=== PATIENT | female | born 1995 | race Caucasian/White ===

== ENCOUNTER 2016-05-30 20:01 | Emergency (ER) | payer OTHER ==
[~2016-05-30] VITALS: Ht 170.1 cm; Wt 59.0 kg
[~2016-05-30 20:01] MED LIST: ANAPROX DS550 MG PO; ATARAX,VISTARIL50 MG PO; BACTRIM DS 8001 TA1 PO; BACTROBAN OINT22 GM PO; CIPRO250 MG PO; FLEXERIL5 MG PO; HYDROCODONE BIT1 T11 PO; KEFLEX250 MG PO; MACROBID100 M1 PO; MOTRIN800 MG PO; Orphenadrine C100 MG PO; PERCOCET 325 MG1 TA2 PO; PREDNISONE20 M1 PO; PRENATABS FA1 TAB PO; PRENATAL1 TA7 PO; ZOFRAN ODT4 MG SL
[2016-05-30 21:26] LABS: BASO # 0.1 10*3/uL (0.0-0.1); BASO % 0.4 % (0.0-1.0); EOS # 0.1 10*3/uL (0.0-0.4); EOS % 0.6 % (1.0-4.0); HEMATOCRIT 40.8 % (37.0-47.0); HEMOGLOBIN 13.6 g/dl (12.0-16.0); LYMPH # 3.4 10*3/uL (1.3-4.4); LYMPH % 21.6 % (27.0-41.0); MEAN CELL VOLUME 90.9 fl (81.0-99.0); MEAN CORPUSCULAR HGB 30.3 pg (27.0-31.0); MEAN CORPUSCULAR HGB CONC 33.3 g/dl (33.0-37.0); MEAN PLATELET VOLUME 9.8 fl (9.6-12.3); MONO % 6.3 % (3.0-9.0); NEUT # 11.1 10*3/uL (2.3-7.9); NEUT % 70.8 % (47.0-73.0); PLATELET COUNT AUTOMATED 298 10*3/uL (130-400); RED BLOOD COUNT 4.49 10*6/uL (4.10-5.10); RED CELL DISTRI WIDTH 12.9 % (0-14.5); WHITE BLOOD COUNT 15.6 10*3/uL (4.8-10.8)
[2016-05-30 21:35] LABS: BILIRUBIN NEGATIVE (NEGATIVE); BLOOD NEGATIVE (NEGATIVE); CLARITY SL CLOUDY (CLEAR); COLOR YELLOW (YELLOW); GLUCOSE NEGATIVE (NEGATIVE); KETONE NEGATIVE (NEGATIVE); LEUKO ESTERASE TRACE (NEGATIVE); NITRITE NEGATIVE (NEGATIVE); PROTEIN NEGATIVE (NEGATIVE); UROBILINOGEN 0.2 E.U./dl (0.2-1.0)
[2016-05-30 21:35] LABS: URINE AMPHETAMINES < 1000 (1000ng/ml); URINE BARBITURATES < 200 (200ng/ml); URINE COCAINE < 300 (300ng/ml)
[2016-05-30 21:40] LABS: ALBUMIN 3.9 gm/dl (3.1-4.5); ALKALINE PHOSPHATASE 61 U/L (45-117); BILIRUBIN, TOTAL 0.2 mg/dl (0.2-1.0); BUN 12 mg/dl (7-24); CARBON DIOXIDE 24 mmol/L (21-32); CHLORIDE 111 mmol/L (98-107); EST GLOM FILT AFRICAN AMERICAN > 60 ml/min; GLUCOSE 81 mg/dL (65-99); POTASSIUM 3.8 mmol/L (3.5-5.1); SGOT/AST 19 IU/L (3-35); SGPT/ALT 28 U/L (12-78); SODIUM 142 mmol/L (136-145); TOTAL PROTEIN 7.8 gm/dL (6.4-8.2)
[2016-05-30 21:40] LABS: RBC 0-2 rbc/hpf (0-2)
[2016-05-30 21:41] LABS: BACTERIA 3+; URINE REFLEX COMMENT YES (NO)
== END 2016-05-31 00:38 | disposition home or self-care (01) ==
LOC: ED 20:01
PROVIDERS: Physician Assistant
DX: R10.33 Periumbilical pain (principal); R11.2 Nausea with vomiting, unspecified; F17.200 Nicotine dependence, unspecified, uncomplicated

== ENCOUNTER 2016-06-12 19:28 | Emergency (ER) | payer OTHER ==
[~2016-06-12] VITALS: Ht 170.1 cm; Wt 59.0 kg
[2016-06-12] MEDS ORDERED: PRENATAL1 TA1 PO (19:51)
== END 2016-06-12 19:53 | disposition home or self-care (01) ==
LOC: ED 19:28
DX: Z32.01 Encounter for pregnancy test, result positive (principal); O99.331 Smoking (tobacco) complicating pregnancy, first trimester; Z3A.01 Less than 8 weeks gestation of pregnancy

== ENCOUNTER 2016-06-17 22:09 | Emergency (ER) | payer OTHER ==
[~2016-06-17] VITALS: Ht 170.1 cm; Wt 61.2 kg
[~2016-06-17 22:09] MED LIST changes: +PRENATAL1 TA1 PO
[2016-06-17 22:36] LABS: BILIRUBIN NEGATIVE (NEGATIVE); BLOOD NEGATIVE (NEGATIVE); CLARITY SL CLOUDY (CLEAR); COLOR YELLOW (YELLOW); GLUCOSE NEGATIVE (NEGATIVE); KETONE NEGATIVE (NEGATIVE); LEUKO ESTERASE NEGATIVE (NEGATIVE); NITRITE NEGATIVE (NEGATIVE); PH 6.5 (5.0-9.0); PROTEIN NEGATIVE (NEGATIVE)
[2016-06-17 22:46] LABS: BACTERIA 2+
[2016-06-17 22:47] LABS: URINE REFLEX COMMENT YES (NO)
[2016-06-18] MEDS ORDERED: MACROBID100 M1 PO (01:26)
== END 2016-06-18 01:57 | disposition home or self-care (01) ==
LOC: ED 22:09
PROVIDERS: Emergency Medicine
DX: O23.41 Unspecified infection of urinary tract in pregnancy, first trimester (principal); O26.891 Other specified pregnancy related conditions, first trimester; G89.29 Other chronic pain; M54.5 Low back pain; O99.331 Smoking (tobacco) complicating pregnancy, first trimester; Z79.899 Other long term (current) drug therapy; Z3A.01 Less than 8 weeks gestation of pregnancy

== ENCOUNTER 2016-11-08 13:46 | Emergency (ER) | payer OTHER ==
[~2016-11-08] VITALS: Ht 170.1 cm; Wt 61.2 kg
[2016-11-08 14:22] LABS: BILIRUBIN NEGATIVE (NEGATIVE); BLOOD NEGATIVE (NEGATIVE); CLARITY SL CLOUDY (CLEAR); COLOR YELLOW (YELLOW); GLUCOSE NEGATIVE (NEGATIVE); KETONE NEGATIVE (NEGATIVE); LEUKO ESTERASE NEGATIVE (NEGATIVE); NITRITE NEGATIVE (NEGATIVE); UROBILINOGEN 0.2 E.U./dl (0.2-1.0)
[2016-11-08 14:30] LABS: BACTERIA 2+; RBC 0-2 rbc/hpf (0-2)
[2016-11-08 14:31] LABS: BASO % 0.2 % (0.0-1.0); EOS # 0.1 10*3/uL (0.0-0.4); EOS % 0.9 % (1.0-4.0); HEMATOCRIT 33.6 % (37.0-47.0); HEMOGLOBIN 11.5 g/dl (12.0-16.0); LYMPH # 1.8 10*3/uL (1.3-4.4); LYMPH % 15.6 % (27.0-41.0); MEAN CELL VOLUME 92.1 fl (81.0-99.0); MEAN CORPUSCULAR HGB 31.5 pg (27.0-31.0); MEAN CORPUSCULAR HGB CONC 34.2 g/dl (33.0-37.0); MONO # 0.6 10*3/uL (0.1-1.0); PLATELET COUNT AUTOMATED 185 10*3/uL (130-400); RED BLOOD COUNT 3.65 10*6/uL (4.10-5.10); RED CELL DISTRI WIDTH 13.3 % (0-14.5); WHITE BLOOD COUNT 11.5 10*3/uL (4.8-10.8)
[2016-11-08 14:47] LABS: ALBUMIN 2.6 gm/dl (3.1-4.5); ALKALINE PHOSPHATASE 51 U/L (45-117); BUN 4 mg/dl (7-24); CHLORIDE 107 mmol/L (98-107); CREATININE 0.68 mg/dL (0.55-1.02); POTASSIUM 4.1 mmol/L (3.5-5.1); SGOT/AST 5 IU/L (3-35); SGPT/ALT 10 U/L (12-78); SODIUM 136 mmol/L (136-145); TOTAL PROTEIN 6.3 gm/dL (6.4-8.2)
== END 2016-11-08 16:50 | disposition home or self-care (01) ==
LOC: ED 13:46
PROVIDERS: Nurse Practitioner Family
DX: O23.41 Unspecified infection of urinary tract in pregnancy, first trimester (principal); O99.331 Smoking (tobacco) complicating pregnancy, first trimester; O26.891 Other specified pregnancy related conditions, first trimester; M54.5 Low back pain; Z3A.13 13 weeks gestation of pregnancy; Z79.899 Other long term (current) drug therapy; Z88.5 Allergy status to narcotic agent

== ENCOUNTER → 2016-12-15 | Outpatient (CLI) | payer OTHER ==
[2016-12-15 15:38] LABS: BASO % 0.2 % (0.0-1.0); EOS # 0.1 10*3/uL (0.0-0.4); EOS % 0.8 % (1.0-4.0); HEMATOCRIT 34.9 % (37.0-47.0); HEMOGLOBIN 11.9 g/dl (12.0-16.0); LYMPH # 2.5 10*3/uL (1.3-4.4); LYMPH % 19.6 % (27.0-41.0); MEAN CELL VOLUME 91.6 fl (81.0-99.0); MEAN CORPUSCULAR HGB 31.2 pg (27.0-31.0); MEAN CORPUSCULAR HGB CONC 34.1 g/dl (33.0-37.0); MEAN PLATELET VOLUME 9.1 fl (9.6-12.3); MONO # 0.6 10*3/uL (0.1-1.0); MONO % 4.6 % (3.0-9.0); NEUT # 9.4 10*3/uL (2.3-7.9); NEUT % 74.5 % (47.0-73.0); PLATELET COUNT AUTOMATED 262 10*3/uL (130-400); RED BLOOD COUNT 3.81 10*6/uL (4.10-5.10); RED CELL DISTRI WIDTH 13.5 % (0-14.5); WHITE BLOOD COUNT 12.6 10*3/uL (4.8-10.8)
[2016-12-15 15:44] LABS: URINE AMPHETAMINES < 1000 (1000ng/ml); URINE BARBITURATES < 200 (200ng/ml); URINE BENZODIAZEPINES < 200 (200ng/ml); URINE CANNABINOIDS (THC) > 50 (50ng/ml); URINE COCAINE < 300 (300ng/ml); URINE METHADONE < 300 (300ng/ml); URINE OPIATES < 300 (300ng/ml)
[2016-12-15 15:46] LABS: URINE PHENCYCLIDINE < 25 (25ng/ml)
[2016-12-16 07:04] LABS: HEPATITIS B SURFACE AG Negative (Negative); HIV 1+2 AB + HIV1 P24 AG Non Reactive (Non Reactive)
[2016-12-16 14:05] LABS: VARICELLA-ZOSTER IGG 096206 735 index (Immune >165)
== END | disposition home or self-care (01) ==
LOC: LAB 14:55
PROVIDERS: Obstetrics & Gynecology
DX: Z34.82 Encounter for supervision of other normal pregnancy, second trimester (principal); Z3A.19 19 weeks gestation of pregnancy

== ENCOUNTER 2016-12-27 16:40 | Emergency (ER) | payer OTHER ==
[~2016-12-27] VITALS: Ht 170.1 cm; Wt 63.5 kg
[2016-12-27 17:39] LABS: BILIRUBIN NEGATIVE (NEGATIVE); BLOOD NEGATIVE (NEGATIVE); CLARITY CLEAR (CLEAR); COLOR YELLOW (YELLOW); GLUCOSE NEGATIVE (NEGATIVE); KETONE NEGATIVE (NEGATIVE); LEUKO ESTERASE NEGATIVE (NEGATIVE); NITRITE NEGATIVE (NEGATIVE); PH 7.5 (5.0-9.0); SPECIFIC GRAVITY 1.015 (1.005-1.030); UROBILINOGEN 0.2 E.U./dl (0.2-1.0)
[2016-12-27 17:46] LABS: WBC 0-2 wbc/hpf (0-5)
[2016-12-27 17:47] LABS: BACTERIA TRACE
== END 2016-12-27 18:06 | disposition home or self-care (01) ==
LOC: ED 16:40
PROVIDERS: Nurse Practitioner Family
DX: O21.9 Vomiting of pregnancy, unspecified (principal); O99.332 Smoking (tobacco) complicating pregnancy, second trimester; F17.200 Nicotine dependence, unspecified, uncomplicated; O26.892 Other specified pregnancy related conditions, second trimester; G89.29 Other chronic pain; M54.5 Low back pain; Z3A.20 20 weeks gestation of pregnancy; Z79.899 Other long term (current) drug therapy; Z88.5 Allergy status to narcotic agent

== ENCOUNTER → 2017-03-02 | Outpatient (CLI) | payer OTHER ==
[~2017-03-02] MED LIST changes: +MAPAP325 MG PO
[2017-03-02 09:16] LABS: HEMATOCRIT 29.5 % (37.0-47.0); HEMOGLOBIN 9.9 g/dl (12.0-16.0); MEAN CELL VOLUME 93.7 fl (81.0-99.0); MEAN CORPUSCULAR HGB 31.4 pg (27.0-31.0); MEAN CORPUSCULAR HGB CONC 33.6 g/dl (33.0-37.0); MEAN PLATELET VOLUME 9.3 fl (9.6-12.3); RED BLOOD COUNT 3.15 10*6/uL (4.10-5.10); WHITE BLOOD COUNT 11.7 10*3/uL (4.8-10.8)
== END | disposition home or self-care (01) ==
LOC: LAB 08:51
PROVIDERS: Obstetrics & Gynecology
DX: Z34.83 Encounter for supervision of other normal pregnancy, third trimester (principal); O36.0130 Maternal care for anti-D [Rh] antibodies, third trimester, not applicable or unspecified; Z3A.28 28 weeks gestation of pregnancy

== ENCOUNTER 2017-03-04 10:22 | Emergency (ER) | payer OTHER ==
[~2017-03-04] VITALS: Wt 71.2 kg
[~2017-03-04 10:22] MED LIST changes: -MAPAP325 MG PO
[2017-03-04 11:07] LABS: BILIRUBIN NEGATIVE (NEGATIVE); BLOOD NEGATIVE (NEGATIVE); CLARITY SL CLOUDY (CLEAR); COLOR YELLOW (YELLOW); GLUCOSE NEGATIVE (NEGATIVE); KETONE NEGATIVE (NEGATIVE); LEUKO ESTERASE NEGATIVE (NEGATIVE); NITRITE NEGATIVE (NEGATIVE); UROBILINOGEN 0.2 E.U./dl (0.2-1.0)
[2017-03-04 11:15] LABS: BACTERIA TRACE; EPITHELIAL CELLS TNTC
[2017-03-04] MEDS ORDERED: MAPAP325 MG PO (11:19)
== END 2017-03-04 11:20 | disposition home or self-care (01) ==
LOC: ED 10:22
PROVIDERS: Student in an Organized Health Care Education/Training Program
DX: O26.893 Other specified pregnancy related conditions, third trimester (principal); M54.5 Low back pain; G89.29 Other chronic pain; O99.333 Smoking (tobacco) complicating pregnancy, third trimester; F17.200 Nicotine dependence, unspecified, uncomplicated; Z3A.30 30 weeks gestation of pregnancy; Z88.5 Allergy status to narcotic agent; Z79.899 Other long term (current) drug therapy

== ENCOUNTER 2017-10-07 15:17 | Emergency (ER) | payer OTHER ==
[~2017-10-07] VITALS: Ht 172.7 cm; Wt 65.8 kg
[~2017-10-07 15:17] MED LIST changes: +MAPAP325 MG PO
[2017-10-07 15:50] LABS: BASO % 0.5 % (0.0-1.0); EOS # 0.1 10*3/uL (0.0-0.4); HEMATOCRIT 38.8 % (37.0-47.0); HEMOGLOBIN 13.1 g/dl (12.0-16.0); LYMPH # 1.8 10*3/uL (1.3-4.4); LYMPH % 23.3 % (27.0-41.0); MEAN CELL VOLUME 90.4 fl (81.0-99.0); MEAN CORPUSCULAR HGB 30.5 pg (27.0-31.0); MEAN CORPUSCULAR HGB CONC 33.8 g/dl (33.0-37.0); MEAN PLATELET VOLUME 9.1 fl (9.6-12.3); MONO # 0.7 10*3/uL (0.1-1.0); MONO % 8.7 % (3.0-9.0); NEUT # 5.1 10*3/uL (2.3-7.9); NEUT % 66.2 % (47.0-73.0); PLATELET COUNT AUTOMATED 226 10*3/uL (130-400); RED BLOOD COUNT 4.29 10*6/uL (4.10-5.10); WHITE BLOOD COUNT 7.6 10*3/uL (4.8-10.8)
[2017-10-07 16:04] LABS: BILIRUBIN NEGATIVE (NEGATIVE); BLOOD NEGATIVE (NEGATIVE); CLARITY CLEAR (CLEAR); COLOR YELLOW (YELLOW); GLUCOSE NEGATIVE (NEGATIVE); KETONE NEGATIVE (NEGATIVE); LEUKO ESTERASE TRACE (NEGATIVE); NITRITE NEGATIVE (NEGATIVE); SPECIFIC GRAVITY <= 1.005 (1.005-1.030); UROBILINOGEN 0.2 E.U./dl (0.2-1.0)
[2017-10-07 16:05] LABS: ALBUMIN 3.8 gm/dl (3.1-4.5); ALKALINE PHOSPHATASE 64 U/L (45-117); BUN 10 mg/dl (7-24); CHLORIDE 109 mmol/L (98-107); CREATININE 0.96 mg/dL (0.55-1.02); LIPASE 61 U/L (73-393); POTASSIUM 3.5 mmol/L (3.5-5.1); SGOT/AST 15 IU/L (3-35); SGPT/ALT 20 U/L (12-78); SODIUM 139 mmol/L (136-145); TOTAL PROTEIN 7.4 gm/dL (6.4-8.2)
[2017-10-07] MEDS ORDERED: CLARITIN10 MG PO (16:07)
[2017-10-07] MEDS ORDERED: ZOFRAN4 MG PO (16:07)
[2017-10-07] MEDS ORDERED: PREDNISONE10 MG PO (16:07)
[2017-10-07] MEDS ORDERED: FLONASE ALLERG9.9 ML NAS (16:07)
[2017-10-07 16:11] LABS: BACTERIA 2+; MUCOUS TRACE
== END 2017-10-07 16:44 | disposition home or self-care (01) ==
LOC: ED 15:17
PROVIDERS: Nurse Practitioner Family
DX: B34.9 Viral infection, unspecified (principal); R03.0 Elevated blood-pressure reading, without diagnosis of hypertension; G89.29 Other chronic pain; F17.200 Nicotine dependence, unspecified, uncomplicated; Z79.899 Other long term (current) drug therapy; Z88.5 Allergy status to narcotic agent

== ENCOUNTER 2017-10-08 14:15 | Inpatient (IN) | payer OTHER ==
[~2017-10-08] VITALS: Ht 172.7 cm; Wt 63.2 kg
--- NOTE | ~2017-10-08 | CON ---
[place], [place] REPORT OF CONSULTATION NAME: CEM ARANGO UNIT #: [id number] ROOM: 415 DOCTOR: YUSUF MACIAS,MAY BIRTHDATE: [birth year] DOS: 10/09/2017 HISTORY OF PRESENT ILLNESS: The patient is a 22-year-old female who came in from home on 10/07 due to a persistent cough for several days. She was diagnosed with bronchitis and discharged home with steroids. Her blood cultures, she had 2 bottles from one set with gram-positive cocci. She was called back to the hospital yesterday. She was placed on vancomycin and Zosyn. She had no complaints of urinary symptoms. Does have some vaginal discharge, which she states is white yellow that she is about to start her period and has no irritation or pain with the discharge. She has also had a hematemesis for 2 days on the and 10/08. She states that has resolved. Denies any other pain anywhere. No rashes. Cough is nonproductive. No fevers or chills. No peripheral edema. No history of valve disease or rheumatic fever. Her urinalysis was a clean urine culture from the , remained sterile. Repeat blood cultures from yesterday remained sterile. She had a CT of the abdomen and pelvis, which only demonstrates a nonobstructing calculus in the right kidney. Chest x-ray showed no infiltrate. PAST MEDICAL HISTORY: Only significant for dilation and curettage, , back pain, tobacco abuse, marijuana abuse. FAMILY MEDICAL HISTORY: Father from a swimming accident in 1995. Mother of a heroin overdose. ALLERGIES: INCLUDE HYDROMORPHONE. CURRENT MEDICATIONS: Zofran, Ativan, Lovenox, vitamin D, Motrin, vancomycin, Zosyn, Nicoderm, Nicotrol, Solu-Medrol, DuoNebs, Tylenol. SOCIAL HISTORY: Smokes 2 packs of cigarettes per day. Also, drinks heavily up to 8-10 beers per day, smokes marijuana, smoked crack up until 2 years ago. Denies any history of IV drug use. LABORATORY DATA: WBCs 8.7, platelets 192, BUN 15, creatinine 0.92, sodium 141. LFTs within normal limits. C-reactive protein yesterday was 1.7, lactic acid was 0.7. Again, repeat blood cultures from 10/08 remained sterile. Her urine culture from 10/07 is sterile. Blood cultures from 10/07, two bottles of one set with gram-positive cocci in clusters. VITAL SIGNS: Temperature 97.5, pulse 62, respirations 16, BP 118/58. REVIEW OF SYSTEMS: As above in history of present illness. Again, no fevers or chills prior to admission or since admission. Further review of systems is unremarkable x 10. PHYSICAL EXAMINATION: GENERAL: A 22-year-old female in no acute distress. HEENT: Normocephalic, no thrush. No cervical lymphadenopathy. Neck supple. Teeth in good repair. LUNGS: With rhonchi bilaterally. Respirations even and unlabored. [place], [place] REPORT OF CONSULTATION NAME: CEM ARANGO UNIT #: [id number] ROOM: [facility] DOCTOR: YUSUF MACIASMAY BIRTHDATE: [birth year] HEART: Regular rhythm. No murmur appreciated. ABDOMEN: Soft, nontender, positive bowel sounds, no masses. EXTREMITIES: No edema, deformity or cyanosis. SKIN: Warm, dry, free of rashes. Multiple tattoos. ASSESSMENT: Gram-positive cocci bacteremia, contaminant versus true infection, contaminant seems more likely. However, she did have 2 bottles from one set. PLAN: We will follow up on the cultures, stop Zosyn, continue vancomycin for now, pending the results of her blood cultures. I have discussed with her the need for tobacco and alcohol abuse cessation, especially for her long-term health. MAY GILBERTO GOLDBERG Syeda Ha MD CM:CONSTR:REPORT OF CONSULTATION 1500 10/09/17 [id number] interface
--- NOTE | ~2017-10-08 | EKG ---
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
--- NOTE | ~2017-10-08 | CON ---
[place], [place] REPORT OF CONSULTATION NAME: CEM ARANGO UNIT #: [id number] ROOM: 415 DOCTOR: PETE REZA MD BIRTHDATE: [birth year] DOS: 10/09/2017 Gram-positive bacteremia, likely a contaminant. Watch for next 24 hours. Other blood cultures to remain negative. I agree with the assessment and plan made by the nurse practitioner, Hali Hatfield. I reviewed the labs and imaging, made necessary changes. Syeda Reza MD CM:CONSTR:REPORT OF CONSULTATION 1621 10/10/17 2106 interface
[~2017-10-08 14:15] MED LIST changes: +CLARITIN10 MG PO; +FLONASE ALLERG9.9 ML NAS; +PREDNISONE10 MG PO; +ZOFRAN4 MG PO
[2017-10-08 14:16] VITALS: BP 132/79
[2017-10-08 14:48] LABS: BASO % 0.3 % (0.0-1.0); EOS # 0.1 10*3/uL (0.0-0.4); EOS % 0.6 % (1.0-4.0); HEMATOCRIT 37.9 % (37.0-47.0); HEMOGLOBIN 12.7 g/dl (12.0-16.0); LYMPH # 3.1 10*3/uL (1.3-4.4); LYMPH % 26.1 % (27.0-41.0); MEAN CELL VOLUME 90.5 fl (81.0-99.0); MEAN CORPUSCULAR HGB 30.3 pg (27.0-31.0); MEAN CORPUSCULAR HGB CONC 33.5 g/dl (33.0-37.0); MEAN PLATELET VOLUME 9.4 fl (9.6-12.3); MONO # 1.1 10*3/uL (0.1-1.0); MONO % 9.1 % (3.0-9.0); NEUT # 7.5 10*3/uL (2.3-7.9); NEUT % 63.7 % (47.0-73.0); PLATELET COUNT AUTOMATED 245 10*3/uL (130-400); RED BLOOD COUNT 4.19 10*6/uL (4.10-5.10); RED CELL DISTRI WIDTH 13.1 % (0-14.5); WHITE BLOOD COUNT 11.8 10*3/uL (4.8-10.8)
[2017-10-08 15:05] LABS: ALBUMIN 3.8 gm/dl (3.1-4.5); ALKALINE PHOSPHATASE 64 U/L (45-117); BUN 19 mg/dl (7-24); CHLORIDE 109 mmol/L (98-107); CREATININE 1.08 mg/dL (0.55-1.02); POTASSIUM 3.5 mmol/L (3.5-5.1); SGOT/AST 37 IU/L (3-35); SGPT/ALT 29 U/L (12-78); SODIUM 141 mmol/L (136-145); TOTAL PROTEIN 7.4 gm/dL (6.4-8.2)
[2017-10-08 15:45] VITALS: BP 117/80
[2017-10-08 16:28] LABS: LIPASE 95 U/L (73-393)
[2017-10-08 17:36] LABS: BILIRUBIN NEGATIVE (NEGATIVE); BLOOD NEGATIVE (NEGATIVE); CLARITY SL CLOUDY (CLEAR); COLOR YELLOW (YELLOW); GLUCOSE NEGATIVE (NEGATIVE); KETONE TRACE (NEGATIVE); LEUKO ESTERASE NEGATIVE (NEGATIVE); NITRITE NEGATIVE (NEGATIVE); SPECIFIC GRAVITY 1.025 (1.005-1.030)
[2017-10-08 17:50] LABS: CALCIUM OXALATE CRYSTALS 1+; MUCOUS 1+
[2017-10-08 20:00] VITALS: BP 116/74
[2017-10-09] VITALS: BP 117/63
[2017-10-09 06:01] LABS: BASO % 0.2 % (0.0-1.0); HEMATOCRIT 34.1 % (37.0-47.0); HEMOGLOBIN 11.3 g/dl (12.0-16.0); LYMPH # 2.1 10*3/uL (1.3-4.4); MEAN CELL VOLUME 92.7 fl (81.0-99.0); MEAN CORPUSCULAR HGB 30.7 pg (27.0-31.0); MEAN CORPUSCULAR HGB CONC 33.1 g/dl (33.0-37.0); MEAN PLATELET VOLUME 9.7 fl (9.6-12.3); MONO # 0.6 10*3/uL (0.1-1.0); MONO % 6.4 % (3.0-9.0); NEUT % 69.1 % (47.0-73.0); PLATELET COUNT AUTOMATED 192 10*3/uL (130-400); RED BLOOD COUNT 3.68 10*6/uL (4.10-5.10); RED CELL DISTRI WIDTH 13.2 % (0-14.5); WHITE BLOOD COUNT 8.7 10*3/uL (4.8-10.8)
[2017-10-09 06:30] LABS: ALKALINE PHOSPHATASE 51 U/L (45-117); BUN 15 mg/dl (7-24); CHLORIDE 110 mmol/L (98-107); CREATININE 0.92 mg/dL (0.55-1.02); FREE T4 0.98 ng/dl (0.76-1.46); PHOSPHOROUS 3.1 mg/dL (2.5-4.9); POTASSIUM 3.9 mmol/L (3.5-5.1); SGOT/AST 21 IU/L (3-35); SGPT/ALT 24 U/L (12-78); SODIUM 141 mmol/L (136-145); TOTAL PROTEIN 6.2 gm/dL (6.4-8.2)
[2017-10-09 06:35] LABS: THYROID STIM HORMONE (HS) 0.664 uIU/ml (0.358-4.75)
[2017-10-09 08:00] VITALS: BP 124/84
[2017-10-09 08:20] LABS: VITAMIN D, 25-HYDROXY 29.7 ng/mL (30-100)
[2017-10-09 12:00] VITALS: BP 118/58
[2017-10-09 16:00] VITALS: BP 126/77
[2017-10-09 17:39] LABS: URINE AMPHETAMINES < 1000 (1000ng/ml); URINE BARBITURATES < 200 (200ng/ml); URINE BENZODIAZEPINES < 200 (200ng/ml); URINE CANNABINOIDS (THC) > 50 (50ng/ml); URINE COCAINE > 300 (300ng/ml); URINE METHADONE < 300 (300ng/ml); URINE OPIATES > 300 (300ng/ml)
[2017-10-09 17:40] LABS: URINE PHENCYCLIDINE < 25 (25ng/ml)
[2017-10-09 20:00] VITALS: BP 117/79
[2017-10-10] VITALS: BP 111/52
[2017-10-10 08:00] VITALS: BP 126/79
[2017-10-10 12:00] VITALS: BP 135/84
[2017-10-10] MEDS ORDERED: VITAMIN D-32000 UNIT PO (15:18)
[2017-10-10] MEDS ORDERED: NICODERM CQ1 EAC2 T (15:56)
[2017-10-10 16:00] VITALS: BP 115/67
[2017-10-13 04:03] LABS: GONOCOCCUS BY NAA Negative (Negative)
== END 2017-10-10 16:34 | disposition home or self-care (01) | DRG 693 ==
LOC: ED 14:15 → EDHOLD 15:22 → 4E 15:58
PROVIDERS: Emergency Medicine; Registered Nurse
DX: N20.0 Calculus of kidney (principal); N17.0 Acute kidney failure with tubular necrosis; K92.0 Hematemesis; E44.0 Moderate protein-calorie malnutrition; R45.851 Suicidal ideations; G89.29 Other chronic pain; F17.210 Nicotine dependence, cigarettes, uncomplicated; D72.829 Elevated white blood cell count, unspecified; M54.5 Low back pain; F10.10 Alcohol abuse, uncomplicated; E55.9 Vitamin D deficiency, unspecified; R73.9 Hyperglycemia, unspecified; Z88.6 Allergy status to analgesic agent; Z87.440 Personal history of urinary (tract) infections; Z87.442 Personal history of urinary calculi; Z81.3 Family history of other psychoactive substance abuse and dependence; Z79.899 Other long term (current) drug therapy; Z79.52 Long term (current) use of systemic steroids; Z71.6 Tobacco abuse counseling; Z71.41 Alcohol abuse counseling and surveillance of alcoholic; Z68.21 Body mass index [BMI] 21.0-21.9, adult

== ENCOUNTER 2018-08-29 17:39 | Emergency (ER) | payer OTHER ==
[~2018-08-29] VITALS: Ht 170.1 cm; Wt 61.2 kg
[~2018-08-29 17:39] MED LIST changes: +NICODERM CQ1 EAC2 T; +VITAMIN D-32000 UNIT PO
[2018-08-29 18:15] LABS: BILIRUBIN NEGATIVE (NEGATIVE); BLOOD NEGATIVE (NEGATIVE); CLARITY CLEAR (CLEAR); COLOR YELLOW (YELLOW); GLUCOSE NEGATIVE (NEGATIVE); KETONE NEGATIVE (NEGATIVE); LEUKO ESTERASE TRACE (NEGATIVE); NITRITE NEGATIVE (NEGATIVE); UROBILINOGEN 0.2 E.U./dl (0.2-1.0)
[2018-08-29 18:24] LABS: BACTERIA 1+; MUCOUS TRACE; WBC 0-2 wbc/hpf (0-5)
== END 2018-08-29 20:55 | disposition left against medical advice (07) ==
LOC: ED 17:39
PROVIDERS: Physician Assistant
DX: O26.891 Other specified pregnancy related conditions, first trimester (principal); R10.30 Lower abdominal pain, unspecified; M54.9 Dorsalgia, unspecified; N89.8 Other specified noninflammatory disorders of vagina; F17.200 Nicotine dependence, unspecified, uncomplicated; F12.90 Cannabis use, unspecified, uncomplicated; Z88.6 Allergy status to analgesic agent; Z3A.09 9 weeks gestation of pregnancy

== ENCOUNTER 2018-11-16 19:13 | Emergency (ER) | payer OTHER ==
[~2018-11-16] VITALS: Wt 70.3 kg
[2018-11-16] MEDS ORDERED: ZITHROMAX250 MG PO (19:32)
== END 2018-11-16 19:50 | disposition home or self-care (01) ==
LOC: ED 19:13
DX: J32.9 Chronic sinusitis, unspecified (principal); G89.29 Other chronic pain; F17.200 Nicotine dependence, unspecified, uncomplicated; Z88.8 Allergy status to other drugs, medicaments and biological substances

== ENCOUNTER 2018-11-25 21:47 | Emergency (ER) | payer OTHER ==
[~2018-11-25] VITALS: Ht 170.1 cm; Wt 63.5 kg
[~2018-11-25 21:47] MED LIST changes: +ZITHROMAX250 MG PO
[2018-11-25 22:16] LABS: BILIRUBIN NEGATIVE (NEGATIVE); BLOOD TRACE-INTACT (NEGATIVE); CLARITY SL CLOUDY (CLEAR); COLOR YELLOW (YELLOW); GLUCOSE NEGATIVE (NEGATIVE); KETONE NEGATIVE (NEGATIVE); LEUKO ESTERASE NEGATIVE (NEGATIVE); NITRITE NEGATIVE (NEGATIVE); SPECIFIC GRAVITY >= 1.030 (1.005-1.030); UROBILINOGEN 0.2 E.U./dl (0.2-1.0)
[2018-11-25 22:35] LABS: EPITHELIAL CELLS 45-50
[2018-11-25 22:40] LABS: BACTERIA 1+; WBC 0-2 wbc/hpf (0-5)
[2018-11-25 23:50] LABS: BASO # 0.1 10*3/uL (0.0-0.1); BASO % 0.4 % (0.0-1.0); EOS # 0.3 10*3/uL (0.0-0.4); EOS % 2.3 % (1.0-4.0); HEMATOCRIT 31.7 % (37.0-47.0); HEMOGLOBIN 10.4 g/dl (12.0-16.0); LYMPH # 3.1 10*3/uL (1.3-4.4); LYMPH % 25.2 % (27.0-41.0); MEAN CELL VOLUME 96.9 fl (81.0-99.0); MEAN CORPUSCULAR HGB 31.8 pg (27.0-31.0); MEAN CORPUSCULAR HGB CONC 32.8 g/dl (33.0-37.0); MEAN PLATELET VOLUME 9.1 fl (9.6-12.3); MONO # 0.8 10*3/uL (0.1-1.0); MONO % 6.1 % (3.0-9.0); NEUT # 8.1 10*3/uL (2.3-7.9); NEUT % 65.5 % (47.0-73.0); PLATELET COUNT AUTOMATED 267 10*3/uL (130-400); RED BLOOD COUNT 3.27 10*6/uL (4.10-5.10); RED CELL DISTRI WIDTH 13.2 % (0-14.5); WHITE BLOOD COUNT 12.4 10*3/uL (4.8-10.8)
[2018-11-26 00:01] LABS: BUN 14 mg/dl (7-24); CHLORIDE 108 mmol/L (98-107); CREATININE 0.68 mg/dL (0.55-1.02); POTASSIUM 3.8 mmol/L (3.5-5.1); SODIUM 138 mmol/L (136-145)
[2018-11-26] MEDS ORDERED: MACROBID100 M1 PO (01:08)
== END 2018-11-26 01:39 | disposition home or self-care (01) ==
LOC: ED 21:47
PROVIDERS: Emergency Medicine Emergency Medical Services
DX: O23.42 Unspecified infection of urinary tract in pregnancy, second trimester (principal); B96.89 Other specified bacterial agents as the cause of diseases classified elsewhere; G89.29 Other chronic pain; O99.332 Smoking (tobacco) complicating pregnancy, second trimester; Z3A.19 19 weeks gestation of pregnancy; Z88.6 Allergy status to analgesic agent; Z79.2 Long term (current) use of antibiotics

== ENCOUNTER → 2018-11-28 | Outpatient (CLI) | payer OTHER | END | disposition home or self-care (01) | LOC: US 00:59 | DX: Z34.02 Encounter for supervision of normal first pregnancy, second trimester (principal); Z3A.21 21 weeks gestation of pregnancy ==

== ENCOUNTER 2019-04-13 11:22 | Emergency (ER) | payer OTHER | END 2019-04-13 12:00 | disposition short-term general hospital (02) | LOC: ED 11:22 | DX: O62.9 Abnormality of forces of labor, unspecified (principal); O99.333 Smoking (tobacco) complicating pregnancy, third trimester; Z3A.39 39 weeks gestation of pregnancy; Z79.899 Other long term (current) drug therapy; Z79.2 Long term (current) use of antibiotics ==

== ENCOUNTER 2019-07-18 16:26 | Emergency (ER) | payer OTHER ==
[~2019-07-18] VITALS: Ht 170.1 cm; Wt 70.3 kg
[2019-07-18 17:15] LABS: BILIRUBIN NEGATIVE (NEGATIVE); BLOOD 1+ (NEGATIVE); CLARITY CLEAR (CLEAR); COLOR YELLOW (YELLOW); GLUCOSE NEGATIVE (NEGATIVE); KETONE NEGATIVE (NEGATIVE); NITRITE NEGATIVE (NEGATIVE); SPECIFIC GRAVITY 1.015 (1.005-1.030); UROBILINOGEN 0.2 E.U./dl (0.2-1.0)
[2019-07-18 17:17] LABS: LEUKO ESTERASE NEGATIVE (NEGATIVE)
[2019-07-18 17:20] LABS: BACTERIA 1+; RBC 21-30 rbc/hpf (0-2)
[2019-07-18 17:21] LABS: MUCOUS 1+
[2019-07-18] MEDS ORDERED: FLOMAX0.4 MG PO (19:32)
[2019-07-18] MEDS ORDERED: ZOFRAN4 MG PO (19:32)
[2019-07-18] MEDS ORDERED: Motrin,Rufen800 MG PO (19:32)
[2019-07-18] MEDS ORDERED: AMINOPHYLLIN200 MG PO (19:32)
== END 2019-07-18 19:59 | disposition home or self-care (01) ==
LOC: ED 16:26
PROVIDERS: Physician Assistant
DX: N20.1 Calculus of ureter (principal); Z88.8 Allergy status to other drugs, medicaments and biological substances

== ENCOUNTER → 2019-12-26 | Outpatient (CLI) | payer OTHER ==
[~2019-12-26] MED LIST changes: +AMINOPHYLLIN200 MG PO; +FLOMAX0.4 MG PO; +Motrin,Rufen800 MG PO
== END | disposition home or self-care (01) ==
LOC: US 13:57
PROVIDERS: ATTEND Nurse Practitioner Women's Health
DX: O34.81 Maternal care for other abnormalities of pelvic organs, first trimester (principal); Z3A.11 11 weeks gestation of pregnancy

== ENCOUNTER → 2020-01-23 | Outpatient (CLI) | payer OTHER | END | disposition home or self-care (01) | LOC: COVID19 13:08 | PROVIDERS: ATTEND Internal Medicine | DX: Z20.828 Contact with and (suspected) exposure to other viral communicable diseases (principal) ==

== ENCOUNTER 2020-02-29 09:55 | Emergency (ER) | payer OTHER ==
[~2020-02-29] VITALS: Ht 170.1 cm; Wt 72.6 kg
== END 2020-02-29 10:31 | disposition home or self-care (01) ==
LOC: ED 09:55
DX: O46.92 Antepartum hemorrhage, unspecified, second trimester (principal); Z3A.20 20 weeks gestation of pregnancy; Z88.8 Allergy status to other drugs, medicaments and biological substances

== ENCOUNTER 2020-11-30 13:24 | Emergency (ER) | payer OTHER ==
[2020-11-30] MEDS ORDERED: VICO10300 PO (16:20)
== END 2020-11-30 16:39 | disposition home or self-care (01) ==
LOC: ED 13:24
DX: S62.327A Displaced fracture of shaft of fifth metacarpal bone, left hand, initial encounter for closed fracture (principal); F17.200 Nicotine dependence, unspecified, uncomplicated; Z88.6 Allergy status to analgesic agent; Z79.2 Long term (current) use of antibiotics; Z79.899 Other long term (current) drug therapy; W01.0XXA Fall on same level from slipping, tripping and stumbling without subsequent striking against object, initial encounter; Y93.89 Activity, other specified; Y92.89 Other specified places as the place of occurrence of the external cause; Y99.8 Other external cause status

== ENCOUNTER → 2020-12-17 | Day surgery (SDC) | payer OTHER ==
[~2020-12-17] VITALS: Ht 170.1 cm; Wt 70.3 kg
[~2020-12-17] MED LIST changes: +ULTRAM50 MG PO; +VIBRAMYCIN100 MG PO; +VICO10300 PO; +XARELTO10 MG PO
[2020-12-17 14:27] VITALS: BP 140/82
[2020-12-17 14:45] VITALS: BP 130/79
[2020-12-17 15:00] VITALS: BP 138/87
[2020-12-17 15:15] VITALS: BP 119/56
[2020-12-17 15:28] VITALS: BP 122/69
== END | disposition home or self-care (01) ==
LOC: SDC 12-12 09:30
PROVIDERS: ATTEND Podiatrist
DX: S92.352A Displaced fracture of fifth metatarsal bone, left foot, initial encounter for closed fracture (principal); F41.9 Anxiety disorder, unspecified; F17.210 Nicotine dependence, cigarettes, uncomplicated; Z88.5 Allergy status to narcotic agent; Z79.899 Other long term (current) drug therapy; X58.XXXA Exposure to other specified factors, initial encounter; Y93.89 Activity, other specified; Y92.89 Other specified places as the place of occurrence of the external cause; Y99.8 Other external cause status; Z20.822 Contact with and (suspected) exposure to COVID-19

== ENCOUNTER 2021-08-21 14:12 | Emergency (ER) | payer OTHER ==
[~2021-08-21] VITALS: Ht 170.1 cm; Wt 95.3 kg
== END 2021-08-21 15:40 | disposition home or self-care (01) ==
LOC: ED 14:12
DX: O47.1 False labor at or after 37 completed weeks of gestation (principal); Z3A.39 39 weeks gestation of pregnancy

== ENCOUNTER 2021-11-29 15:35 | Emergency (ER) | payer OTHER ==
[~2021-11-29] VITALS: Ht 170.1 cm; Wt 72.6 kg
[2021-11-29 16:08] LABS: BASO # 0.1 10*3/uL (0.0-0.1); BASO % 0.5 % (0.0-1.0); EOS # 0.6 10*3/uL (0.0-0.4); EOS % 6.3 % (1.0-4.0); HEMATOCRIT 35.5 % (37.0-47.0); LYMPH # 3.2 10*3/uL (1.3-4.4); MEAN CELL VOLUME 85.1 fl (81.0-99.0); MEAN CORPUSCULAR HGB 27.6 pg (27.0-31.0); MEAN CORPUSCULAR HGB CONC 32.4 g/dl (33.0-37.0); MEAN PLATELET VOLUME 9.2 fl (9.6-12.3); MONO # 0.7 10*3/uL (0.1-1.0); MONO % 7.1 % (3.0-9.0); NEUT # 4.8 10*3/uL (2.3-7.9); PLATELET COUNT AUTOMATED 282 10*3/uL (130-400); RED BLOOD COUNT 4.17 10*6/uL (4.10-5.10); RED CELL DISTRI WIDTH 16.5 % (0-14.5); WHITE BLOOD COUNT 9.3 10*3/uL (4.8-10.8)
[2021-11-29 16:30] LABS: BILIRUBIN Negative (Negative); BLOOD Negative (Negative); CLARITY Clear (Clear); COLOR Yellow (Yellow); GLUCOSE Negative (Negative); KETONE Negative (Negative); LEUKO ESTERASE 1+ (Negative); NITRITE Negative (Negative); UROBILINOGEN 0.2 E.U./dl (0.0-1.0)
[2021-11-29 16:33] LABS: BUN 15 mg/dl (7-24); CHLORIDE 113 mmol/L (98-107); CREATININE 0.85 mg/dL (0.55-1.02); POTASSIUM 3.9 mmol/L (3.5-5.1); SODIUM 144 mmol/L (136-145)
[2021-11-29 16:40] LABS: BACTERIA 2+; EPITHELIAL CELLS 51-100; RBC 0-2 rbc/hpf (0-2)
[2021-11-29] MEDS ORDERED: TYLENOL325 M1 PO (17:30)
[2021-11-29] MEDS ORDERED: NAPROXEN250 MG PO (17:30)
[2021-11-29] MEDS ORDERED: AMOX-CLAV 875-1 EACH PO (17:30)
== END 2021-11-29 17:38 | disposition home or self-care (01) ==
LOC: ED 15:35
PROVIDERS: Emergency Medicine
DX: J01.90 Acute sinusitis, unspecified (principal); B96.89 Other specified bacterial agents as the cause of diseases classified elsewhere; Z88.8 Allergy status to other drugs, medicaments and biological substances; Z87.891 Personal history of nicotine dependence

== ENCOUNTER 2021-12-10 10:49 | Inpatient (IN) | payer OTHER ==
[2021-12-10] VITALS (9 sets, daily range): BP systolic 95–130; BP diastolic 51–80
[~2021-12-10] VITALS: Ht 170 cm; Wt 74.8 kg
[~2021-12-10 10:49] MED LIST changes: +AMOX-CLAV 875-1 EACH PO; +NAPROXEN250 MG PO; +TYLENOL325 M1 PO
[2021-12-10 11:22] LABS: BASO # 0.1 10*3/uL (0.0-0.1); BASO % 0.4 % (0.0-1.0); EOS % 5.8 % (1.0-4.0); HEMATOCRIT 35.6 % (37.0-47.0); LYMPH # 2.8 10*3/uL (1.3-4.4); LYMPH % 16.6 % (27.0-41.0); MEAN CELL VOLUME 86.2 fl (81.0-99.0); MEAN CORPUSCULAR HGB 27.1 pg (27.0-31.0); MEAN CORPUSCULAR HGB CONC 31.5 g/dl (33.0-37.0); MEAN PLATELET VOLUME 9.3 fl (9.6-12.3); MONO # 0.9 10*3/uL (0.1-1.0); MONO % 5.6 % (3.0-9.0); NEUT # 11.8 10*3/uL (2.3-7.9); NEUT % 71.2 % (47.0-73.0); PLATELET COUNT AUTOMATED 288 10*3/uL (130-400); RED BLOOD COUNT 4.13 10*6/uL (4.10-5.10); WHITE BLOOD COUNT 16.6 10*3/uL (4.8-10.8)
[2021-12-10 11:29] LABS: BILIRUBIN Negative (Negative); BLOOD Negative (Negative); CLARITY Clear (Clear); COLOR Yellow (Yellow); GLUCOSE Negative (Negative); KETONE Negative (Negative); LEUKO ESTERASE 1+ (Negative); NITRITE Negative (Negative); UROBILINOGEN 0.2 E.U./dl (0.0-1.0)
[2021-12-10 11:39] LABS: ALKALINE PHOSPHATASE 53 U/L (45-117); BUN 18 mg/dl (7-24); CHLORIDE 114 mmol/L (98-107); LIPASE 143 U/L (73-393); POTASSIUM 4.2 mmol/L (3.5-5.1); SGOT/AST 17 IU/L (3-35); SGPT/ALT 38 U/L (12-78); SODIUM 140 mmol/L (136-145)
[2021-12-10 11:41] LABS: B-hCG (QUALITATIVE) NEGATIVE (NEGATIVE)
[2021-12-10 12:05] LABS: BACTERIA TRACE
[2021-12-10] MEDS ORDERED: COLACE100 MG PO (16:01)
[2021-12-10] MEDS ORDERED: ONDANSETRON HYDR4 M1 PO (16:01)
[2021-12-10] MEDS ORDERED: HYDROCODONE-AC1 EAC1 PO (16:01)
[2021-12-11] VITALS: BP 121/58
[2021-12-11 06:19] LABS: HEMATOCRIT 33.4 % (37.0-47.0); MEAN CELL VOLUME 86.8 fl (81.0-99.0); MEAN CORPUSCULAR HGB 27.5 pg (27.0-31.0); MEAN CORPUSCULAR HGB CONC 31.7 g/dl (33.0-37.0); MEAN PLATELET VOLUME 9.9 fl (9.6-12.3); PLATELET COUNT AUTOMATED 257 10*3/uL (130-400); RED BLOOD COUNT 3.85 10*6/uL (4.10-5.10); RED CELL DISTRI WIDTH 16.2 % (0-14.5); WHITE BLOOD COUNT 17.8 10*3/uL (4.8-10.8)
[2021-12-11 06:21] LABS: MANUAL DIFF REFLEX YES
[2021-12-11 06:25] LABS: BUN 9 mg/dl (7-24); CHLORIDE 117 mmol/L (98-107); CREATININE 0.68 mg/dL (0.55-1.02); POTASSIUM 4.2 mmol/L (3.5-5.1); SODIUM 142 mmol/L (136-145)
[2021-12-11 07:31] LABS: PLATELET SUFFICIENCY NORMAL (NORMAL); TOTAL CELLS COUNTED 100 #CELLS
[2021-12-11 07:32] LABS: BURR CELLS FEW
[2021-12-11 08:00] VITALS: BP 115/65
== END 2021-12-11 10:28 | disposition home or self-care (01) | DRG 234 ==
LOC: ED 10:49 → 4E 12:00 → EDHOLD 12:00 → 4E 15:44
PROVIDERS: Emergency Medicine; Family Medicine; ADMIT Student in an Organized Health Care Education/Training Program; ATTEND Student in an Organized Health Care Education/Training Program
PROC: 3E0T3BZ Introduction of Anesthetic Agent into Peripheral Nerves and Plexi, Percutaneous Approach (ICD-10-PCS; principal; 2021-12-10)
PROC: 0DTJ4ZZ Resection of Appendix, Percutaneous Endoscopic Approach (ICD-10-PCS; 2021-12-10)
DX: K35.30 Acute appendicitis with localized peritonitis, without perforation or gangrene (principal); D72.829 Elevated white blood cell count, unspecified; D64.9 Anemia, unspecified; E87.8 Other disorders of electrolyte and fluid balance, not elsewhere classified; E44.0 Moderate protein-calorie malnutrition; F12.90 Cannabis use, unspecified, uncomplicated; F17.210 Nicotine dependence, cigarettes, uncomplicated; G89.18 Other acute postprocedural pain; E55.9 Vitamin D deficiency, unspecified; Z88.6 Allergy status to analgesic agent; Z84.89 Family history of other specified conditions; Z87.442 Personal history of urinary calculi; Z78.9 Other specified health status; Z71.6 Tobacco abuse counseling; Z68.25 Body mass index [BMI] 25.0-25.9, adult

== ENCOUNTER → 2024-02-03 | Outpatient (CLI) | payer OTHER ==
[~2024-02-03] MED LIST changes: +COLACE100 MG PO; +HYDROCODONE-AC1 EAC1 PO; +ONDANSETRON HYDR4 M1 PO
[2024-02-03 08:56] LABS: MEAN CELL VOLUME 91.1 fl (81.0-99.0); MEAN CORPUSCULAR HGB 29.7 pg (27.0-31.0); MEAN CORPUSCULAR HGB CONC 32.6 g/dl (33.0-37.0); MEAN PLATELET VOLUME 9.7 fl (9.6-12.3); RED BLOOD COUNT 4.17 10*6/uL (4.10-5.10); RED CELL DISTRI WIDTH 14.4 % (0-14.5); WHITE BLOOD COUNT 8.2 10*3/uL (4.8-10.8)
[2024-02-03 09:18] LABS: ALKALINE PHOSPHATASE 62 U/L (46-116); BUN 15 mg/dl (9-23); CHLORIDE 110 mmol/L (98-107); CHOLESTEROL 166 mg/dL (<200); GAMMA GLUTAMYL TRANSPEPTIDASE 20 U/L (0-73); LDL CHOLESTEROL 90 mg/dL (9-159); POTASSIUM 3.9 mmol/L (3.4-5.1); SGPT/ALT 11 U/L (5-49); TRIGLYCERIDES 200 mg/dl (<150)
[2024-02-04 04:06] LABS: HBsAG SCREEN Negative (Negative); HCV Ab Non Reactive (Non Reactive); HEP B CORE Ab, IgM Negative (Negative)
== END | disposition home or self-care (01) ==
LOC: LAB 08:22
PROVIDERS: ATTEND Family Medicine
DX: Z20.5 Contact with and (suspected) exposure to viral hepatitis (principal)

== ENCOUNTER 2024-05-15 08:15 | Emergency (ER) | payer OTHER ==
[~2024-05-15] VITALS: Wt 77.1 kg
[2024-05-15] MEDS ORDERED: Ketorolac Tromethamine 30 MG/ML VIAL IM ONE (08:40)
[2024-05-15] MEDS ORDERED: Dexamethasone Sodium Phospha 20 MG/5 ML VIAL IM ONE (08:45)
[2024-05-15 09:07] LABS: BASO % 0.3 % (0.0-1.0); EOS # 0.5 10*3/uL (0.0-0.4); EOS % 4.3 % (1.0-4.0); HEMATOCRIT 40.4 % (37.0-47.0); MEAN CELL VOLUME 93.1 fl (81.0-99.0); MEAN CORPUSCULAR HGB 29.7 pg (27.0-31.0); MEAN CORPUSCULAR HGB CONC 31.9 g/dl (33.0-37.0); MONO # 0.8 10*3/uL (0.1-1.0); MONO % 6.8 % (3.0-9.0); NEUT # 8.2 10*3/uL (2.3-7.9); NEUT % 68.1 % (47.0-73.0); PLATELET COUNT AUTOMATED 308 10*3/uL (130-400); RED BLOOD COUNT 4.34 10*6/uL (4.10-5.10); RED CELL DISTRI WIDTH 13.6 % (0-14.5); WHITE BLOOD COUNT 12.1 10*3/uL (4.8-10.8)
[2024-05-15 09:32] LABS: ALKALINE PHOSPHATASE 63 U/L (46-116); BUN 15 mg/dl (9-23); CHLORIDE 110 mmol/L (98-107); POTASSIUM 3.8 mmol/L (3.4-5.1); SGPT/ALT 9 U/L (5-49)
[2024-05-15] MEDS ORDERED: MELOXICAM15 MG PO (09:48)
== END 2024-05-15 10:09 | disposition home or self-care (01) ==
LOC: ED 08:15
PROVIDERS: Internal Medicine
DX: S39.011A Strain of muscle, fascia and tendon of abdomen, initial encounter (principal); Z79.899 Other long term (current) drug therapy; Z88.8 Allergy status to other drugs, medicaments and biological substances; X58.XXXA Exposure to other specified factors, initial encounter; Y93.89 Activity, other specified; Y92.89 Other specified places as the place of occurrence of the external cause; Y99.8 Other external cause status